=== PATIENT | female | born 1950 | race Hispanic/Latino ===

== ENCOUNTER 2019-08-27 11:32 | Emergency (ER) | payer BC ==
[2019-08-27] MEDS ORDERED: ONDANSETRON 4 MG/2 ML VIAL ONE (11:55)
[2019-08-27] MEDS ORDERED: MORPHINE 4 MG/ML SYR ONE (11:55)
[2019-08-27 12:14] LABS: Protime INR 0.92
[2019-08-27 12:15] LABS: Basophils % 1.4 % (0-1.3); Hematocrit 38.3 % (36.0-45.0); Lymphocytes % 31.8 % (15.3-44.8); MPV 9.3 fL (7.6-11.3); RBC Red Blood Cell Count 4.32 M/uL (3.86-4.86)
--- NOTE | 2019-08-27 12:15 | RAD REPORT ---
EXAM DESCRIPTION: Ondina Single View08/27/2019 12:05 pm CLINICAL HISTORY: Chest pain COMPARISON: 2016 FINDINGS: The lungs appear clear of acute infiltrate. The heart is normal size IMPRESSION: No acute abnormalities displayed
[2019-08-27 12:22] LABS: ALT/SGPT 13 U/L (12-78); AST/SGOT 9 U/L (15-37); Albumin 3.1 g/dL (3.4-5.0); Alkaline Phosphatase 101 U/L (45-117); BUN Blood Urea Nitrogen 11 mg/dL (7-18); Bicarbonate 30 mmol/L (21-32); Bilirubin Direct 0.1 mg/dL (0-0.2); Bilirubin Total 0.2 mg/dL (0.2-1.0); Glucose Level 305 mg/dL (74-106); NT PRO-BNP 90 pg/mL (<125); Potassium 4.1 mmol/L (3.5-5.1); Protein, Total 7.3 g/dL (6.4-8.2); Sodium Level 140 mmol/L (136-145); Troponin (Emerg Dept Use Only) < 0.02 ng/mL (0.0-0.045)
--- NOTE | 2019-08-27 13:12 | EDPHYS ---
Physician Documentation [facility] Name: Aliza Claudio Age: 68 yrs Sex: Female : 1950 Arrival Date: 08/27/2019 Time: 11:33 Bed 5 Private MD: ED Physician Claudia Arias HPI: 08/26 13:09 This 68 yrs old Female presents to ER via EMS with complaints of Arm Pain. ma2 13:09 The patient or guardian complains of pain. Onset: The symptoms/episode began/occurred ma2 gradually, 5 day(s) ago. Associated signs and symptoms: Pertinent negatives: erythema, nausea, pain, tingling. Severity of symptoms: At their worst the symptoms were moderate, in the emergency department the symptoms are unchanged. left elbow and forearm pain and wrist pain that is constant x 4 days worse with movement no chest pain or upper arm pain. . Historical: - Allergies: 11:38 Aspirin; em 11:38 Iodine; em - PMHx: 11:38 Diabetes - IDDM; Hypertension; em 11:44 melanoma; em - PSHx: 11:38 Bowel resection; Cholecystectomy; ; Hysterectomy; em - Immunization history:: Adult Immunizations not up to date. - Social history:: Smoking status: Patient denies any tobacco usage or history of. Patient/guardian denies using alcohol, street drugs, The patient lives with family. - Family history:: not pertinent. ROS: 13:09 Constitutional: Negative for fever, chills, and weight loss. ma2 13:09 All other systems are negative. Exam: 13:09 Constitutional: This is a well developed, well nourished patient who is awake, alert, ma2 and in no acute distress. Chest/axilla: Normal chest wall appearance and motion. Nontender with no deformity. No lesions are appreciated. Cardiovascular: Regular rate and rhythm with a normal S1 and S2. No gallops, murmurs, or rubs. Normal PMI, no JVD. No pulse deficits. Respiratory: Lungs have equal breath sounds bilaterally, clear to auscultation and percussion. No rales, rhonchi or wheezes noted. No increased work of breathing, no retractions or nasal flaring. Abdomen/GI: Soft, non-tender, with normal bowel sounds. No distension or tympany. No guarding or rebound. No evidence of tenderness throughout. MS/ Extremity: Pulses equal, no cyanosis. Neurovascular intact. Full, normal range of motion. Neuro: Awake and alert, GCS 15, oriented to person, place, time, and situation. Cranial nerves II-XII grossly intact. Motor strength 5/5 in all extremities. Sensory grossly intact. Cerebellar exam normal. Normal gait. Vital Signs: 11:35 BP 152 / 56; Pulse 66; Resp 18; Temp 98.4(O); Pulse Ox 97% on R/A; Weight 99.79 kg; em Height 5 ft. 4 in. (162.56 cm); Pain 9/10; 12:22 BP 152 / 56; Pulse 58; Resp 12; Pulse Ox 95% ; sv 14:09 BP 116 / 53; Pulse 70; Resp 18; Pulse Ox 99% on R/A; Pain 7/10; em 11:35 Body Mass Index 37.76 (99.79 kg, 162.56 cm) em MDM: 12:54 Patient medically screened. ak2 13:09 Differential diagnosis: contusion, abrasion, tendonitis. Data reviewed: vital signs, ma2 nurses notes. Counseling: I had a detailed discussion with the patient and/or guardian regarding: the historical points, exam findings, and any diagnostic results supporting the discharge/admit diagnosis, the presence of at least one elevated blood pressure reading (>120/80) during this emergency department visit, the need for outpatient follow up. ED course: discussed with dr. núñez. 08/26 11:40 Order name: Basic Metabolic Panel; Complete Time: 12:52 [facility] 08/26 11:40 Order name: CBC with Diff; Complete Time: 12:52 ak08/26 11:40 Order name: LFT's; Complete Time: 12:52 [facility] 08/26 11:40 Order name: Magnesium; Complete Time: 12:52 [facility] 08/26 11:40 Order name: NT PRO-BNP; Complete Time: 12:52 ak08/26 11:40 Order name: PT-INR; Complete Time: 12:52 ak08/26 11:40 Order name: Troponin (emerg Dept Use Only); Complete Time: 12:52 [facility] 08/26 11:40 Order name: XRAY Chest (1 view); Complete Time: 12:52 [facility] 08/26 11:40 Order name: EKG; Complete Time: 11:41 ak08/26 11:40 Order name: Cardiac monitoring; Complete Time: 11:41 [facility] 08/26 13:09 Order name: Uric Acid [facility] 08/26 11:40 Order name: EKG - Nurse/Tech; Complete Time: 12:00 [facility] 08/26 11:40 Order name: IV Saline Lock; Complete Time: 12:00 [facility] 08/26 11:40 Order name: Labs collected and sent; Complete Time: 12:00 [facility] 08/26 11:40 Order name: O2 Per Protocol; Complete Time: 11:41 [facility] 08/26 11:40 Order name: O2 Sat Monitoring; Complete Time: 11:41 [facility] 08/26 11:48 Order name: Sling; Complete Time: 14:07 ma2 Administered Medications: 11:56 Drug: Zofran (Ondansetron) 4 mg Route: IVP; Site: right antecubital; em 12:20 Follow up: Response: No adverse reaction em 11:58 Drug: morphine 2 mg Route: IVP; Site: right antecubital; em 12:20 Follow up: Response: No adverse reaction; Marked relief of symptoms; Pain is decreased em 12:01 Not Given (Other Intervention Used): morphine 4 mg IVP once; RASS on ADMIN: Combtv4, em Very Agttd3, Agttd2, Rstlss1, AlertClm0, Drwsy-1, Lt Sdtn-2, Mod Sdtn-3, Dp Sdtn-4, UnArsble-5 Disposition: 08/27/19 13:12 Discharged to Home. Impression: Muscle spasm, Pain in left elbow. - Condition is Stable. - Discharge Instructions: Muscle Pain, Adult. - Prescriptions for Cyclobenzaprine 10 mg Oral Tablet - take 1 tablet by ORAL route every 8 hours As needed; 30 tablet. Diclofenac Sodium 75 mg Oral Tablet Sustained Release - take 1 tablet by ORAL route 2 times per day; 30 tablet. - Work release form, Medication Reconciliation Form, Thank You Letter, Antibiotic Education, Prescription Opioid Use form. - Follow up: Private Physician; When: Tomorrow; Reason: Continuance of care. Signatures: Dispatcher [employer] Domingo Metz, RN Claudia Blanchard MD MD ma2 Corrections: (The following items were deleted from the chart) 14:38 13:12 08/27/2019 13:12 Discharged to Home. Impression: Muscle spasm; Pain in left em elbow. Condition is Stable. Prescriptions for Cyclobenzaprine 10 mg Oral Tablet - take 1 tablet by ORAL route every 8 hours As needed; 30 tablet, Diclofenac Sodium 75 mg Oral Tablet Sustained Release - take 1 tablet by ORAL route 2 times per day; 30 tablet. and Forms are Medication Reconciliation Form, Thank You Letter, Antibiotic Education, Prescription Opioid Use. Follow up: Private Physician; When: Tomorrow; Reason: Continuance of care. ma2
--- NOTE | 2019-08-27 13:12 | ER ---
Nurse's Notes [facility] Name: Aliza Claudio Age: 68 yrs Sex: Female : 1950 Arrival Date: 08/27/2019 Time: 11:33 Bed 5 Private MD: Diagnosis: Muscle spasm;Pain in left elbow Presentation: 08/26 11:35 Chief complaint: EMS states: called out for left arm pain since Wednesday, denies trauma em to arm, swelling noted to left hand, limited ROM on left elbow, denies chest pain, fever, cough or SOB. Coronavirus screen: Patient denies a cough. Patient denies shortness of breath or difficulty breathing. Patient denies measured and/or subjective temperature greater than 100.4F prior to today's visit. Patient denies travel on a cruise ship or to a country the [facility] currently lists as an affected area. Patient denies contact with known and/or suspected case of COVID-19. Ebola Screen: Patient negative for fever greater than or equal to 101.5 degrees Fahrenheit, and additional compatible Ebola Virus Disease symptoms Patient denies exposure to infectious person. Patient denies travel to an Ebola-affected area in the 21 days before illness onset. No symptoms or risks identified at this time. Initial Sepsis Screen: Does the patient meet any 2 criteria? No. Patient's initial sepsis screen is negative. Does the patient have a suspected source of infection? No. Patient's initial sepsis screen is negative. Risk Assessment: Do you want to hurt yourself or someone else? Patient reports no desire to harm self or others. Onset of symptoms was August 25, 2019. 11:35 Method Of Arrival: EMS: [facility] em 11:35 Acuity: AZEEM 3 em Historical: - Allergies: 11:38 Aspirin; em 11:38 Iodine; em - PMHx: 11:38 Diabetes - IDDM; Hypertension; em 11:44 melanoma; em - PSHx: 11:38 Bowel resection; Cholecystectomy; ; Hysterectomy; em - Immunization history:: Adult Immunizations not up to date. - Social history:: Smoking status: Patient denies any tobacco usage or history of. Patient/guardian denies using alcohol, street drugs, The patient lives with family. - Family history:: not pertinent. Screenin:38 Abuse screen: Denies threats or abuse. Nutritional screening: No deficits noted. em Tuberculosis screening: No symptoms or risk factors identified. Fall Risk None identified. Assessment: 11:38 General: Appears uncomfortable, Behavior is calm, crying, Denies fever. Pain: Complains em of pain in left elbow, left wrist and palmar aspect of left forearm Pain currently is 9 out of 10 on a pain scale. Pain began 2-3 days ago. Neuro: Level of Consciousness is awake, alert, obeys commands, Oriented to person, place, time, situation, Appropriate for age Speech is normal, Intact. Cardiovascular: Denies chest pain, palpitations, shortness of breath, vomiting, Heart tones S1 S2 present Capillary refill < 3 seconds Patient's skin is warm and dry. Rhythm is sinus rhythm. Respiratory: Airway is patent Respiratory effort is even, unlabored, Respiratory pattern is regular, symmetrical. GI: Abdomen is round non-distended, Patient currently denies nausea, vomiting. Derm: Skin is intact, is thin, Skin is pink, warm \T\ dry. Musculoskeletal: Capillary refill < 3 seconds, Range of motion: limited in left elbow Swelling present in left hand. 13:33 Reassessment: Patient appears in no apparent distress at this time. Patient and/or em family updated on plan of care and expected duration. Pain level reassessed. Patient is alert, oriented x 3, equal unlabored respirations, skin warm/dry/pink. has been discharged, waiting for daughter to supervisor opening and picking pt. Vital Signs: 11:35 BP 152 / 56; Pulse 66; Resp 18; Temp 98.4(O); Pulse Ox 97% on R/A; Weight 99.79 kg; em Height 5 ft. 4 in. (162.56 cm); Pain 9/10; 12:22 BP 152 / 56; Pulse 58; Resp 12; Pulse Ox 95% ; sv 14:09 BP 116 / 53; Pulse 70; Resp 18; Pulse Ox 99% on R/A; Pain 7/10; em 11:35 Body Mass Index 37.76 (99.79 kg, 162.56 cm) em ED Course: 11:33 Patient arrived in ED. am2 11:35 Domingo Pulliam, RN is Primary Nurse. em 11:38 Triage completed. em 11:38 Arm band placed on. em 11:38 Patient has correct armband on for positive identification. Bed in low position. Call em light in reach. Side rails up X2. site monitor on. Pulse ox on. NIBP on. 11:39 Claudia Arias MD is Attending Physician. ma2 12:05 XRAY Chest (1 view) In Process Unspecified. EDMS 12:50 Initial lab(s) drawn, by ED staff, sent to lab. Inserted saline lock: 20 gauge in right em antecubital area, using aseptic technique. Blood collected. 14:08 No provider procedures requiring assistance completed. IV discontinued, intact, em bleeding controlled, No redness/swelling at site. Pressure dressing applied. Administered Medications: 11:56 Drug: Zofran (Ondansetron) 4 mg Route: IVP; Site: right antecubital; em 12:20 Follow up: Response: No adverse reaction em 11:58 Drug: morphine 2 mg Route: IVP; Site: right antecubital; em 12:20 Follow up: Response: No adverse reaction; Marked relief of symptoms; Pain is decreased em 12:01 Not Given (Other Intervention Used): morphine 4 mg IVP once; RASS on ADMIN: Combtv4, em Very Agttd3, Agttd2, Rstlss1, AlertClm0, Drwsy-1, Lt Sdtn-2, Mod Sdtn-3, Dp Sdtn-4, UnArsble-5 Outcome: 13:12 Discharge ordered by . ma2 14:37 Discharged to home via wheelchair. em 14:37 Condition: good 14:37 Discharge instructions given to patient, Instructed on discharge instructions, follow up and referral plans. medication usage, Demonstrated understanding of instructions, follow-up care, medications, Prescriptions given X 2. 14:38 Patient left the ED. em Signatures: Dispatcher [employer] Maria Elena Patel RN RN sv Munoz, Edgar, RN RN em Florinda Wayne am2 Claudia Arias MD MD ma2
[2019-08-27 14:45] VITALS: TEMP 98.4
[2019-08-27 14:47] VITALS: BP 116/53; O2SAT 99
--- NOTE | 2019-08-28 16:18 | EKG ---
Test Date: 2019-08-27 Test Time: 11:50:35 Generating Plant Superintendent: JOS MEASUREMENT RESULTS: Intervals: Rate: 65 AK: 176 QRSD: 142 QT: 454 QTc: 472 [place]: P: 67 AK: 176 QRS: -74 T: 20 INTERPRETIVE STATEMENTS: Normal sinus rhythm Right bundle branch block Left anterior fascicular block Bifascicular block Possible Lateral infarct, age undetermined Abnormal ECG Compared to ECG 07/24/2016 17:40:42 Left anterior fascicular block now present Bifascicular block now present Myocardial infarct finding now present Left-axis deviation no longer present Electronically Signed On 08-28-19 16:16:25 CDT by Malachi Kidd
== END 2019-08-27 14:38 | disposition home or self-care (01) ==
LOC: ER 11:32
DX: M62.838 Other muscle spasm (principal); M25.522 Pain in left elbow; Z85.820 Personal history of malignant melanoma of skin
CPT/HCPCS: 93005; 85025; 80048; 36415; 83735; 85610; 80076; 84550; 84484; 83880; 71045; 96375; 96374; 99284; J2405

== ENCOUNTER 2019-08-27 18:45 | Observation (INO) | payer BC, OTHER ==
[2019-08-27] MEDS ORDERED: D50W 25 GM/50 ML SYRINGE/VIAL IV PRN (19:36)
[2019-08-27] MEDS ORDERED: GLUCAGON 1 MG/VIAL IM PRN (19:36)
[2019-08-27] MEDS ORDERED: ONDANSETRON 4 MG/2 ML VIAL IV PRN (19:36)
[2019-08-27] MEDS: HYDROMORPHONE HCL 1 MG/ML INJ IV PRN ×2 (20:06→22:38)
[2019-08-27] MEDS: NACHLORIDE 0.45% 1,000 ML IV SCH (20:07)
[2019-08-27 20:49] LABS: C-Reactive Protein 7.66 mg/L (<3.00)
[2019-08-27] MEDS ORDERED: VANCOMYCIN 1 GM/VIAL ONE (21:47)
[2019-08-27] MEDS ORDERED: NA CHLORIDE 0.9% 500 ML ONE (21:50)
[2019-08-27] MEDS: VANCOMYCIN 2 GM in NA CHLORIDE 0.9% 500 ML IVPB SCH (21:58)
[2019-08-27] MEDS: INSULIN -REGULAR HUMAN 50 UNIT/0.5 ML ML SQ SCH (21:58)
[2019-08-27] MEDS ORDERED: DIPHENHYDRAMINE 25 MG TAB/CAP PO ONE (22:23)
[2019-08-27] MEDS ORDERED: carvediloL 25 MG TAB PO ONE (22:23)
[2019-08-27 23:13] VITALS: BMI 38.9
[2019-08-28 01:18] LABS: Urine Appearance CLEAR; Urine Bilirubin NEGATIVE (NEG); Urine Blood NEGATIVE (NEG); Urine Color YELLOW; Urine Glucose 3+ (NEG); Urine Microscopic Reflex NO UMIC; Urine Protein NEGATIVE (NEG); Urine Specific Gravity 1.025 (1.005-1.030); Urine Urobilinogen 0.2 mg/dL (0.2-1.0)
[2019-08-28 06:35] LABS: Potassium 4.3 mmol/L (3.5-5.1)
[2019-08-28] MEDS ORDERED: PNEUMOCOCCAL VACCINE 0.5 ML IMVAC ONE (08:00)
[2019-08-28 08:31] LABS: HDL Cholesterol 88 mg/dL (40-60); LDL, Direct 97 mg/dL (100-129)
[2019-08-28] MEDS: INSULIN -REGULAR HUMAN 50 UNIT/0.5 ML ML SQ SCH ×4 (08:35→21:00)
[2019-08-28] MEDS: GABAPENTIN 300 MG CAP PO SCH ×3 (08:36→21:49)
[2019-08-28] MEDS: PIOGLITAZONE 15 MG TAB PO SCH (08:36)
[2019-08-28] MEDS: carvediloL 25 MG TAB PO SCH ×2 (08:36→21:49)
[2019-08-28] MEDS: INSULIN LISPRO 100 UNIT/1 ML SQ SCH ×3 (08:37→21:00)
[2019-08-28] MEDS: INSULIN DEGLUDEC 60 UNIT SQ SCH ×2 (08:38→21:00)
[2019-08-28 08:55] VITALS: O2SAT 97
[2019-08-28] MEDS: TRAMADOL HCL 50 MG TAB PO PRN (11:42)
[2019-08-28] MEDS ORDERED: LIDOCAINE 5% OINT 30 GM TUBE TOP PRN (13:39)
--- NOTE | 2019-08-28 16:18 | EKG ---
Test Date: 2019-08-27 Test Time: 20:38:09 Licensed Reactor Operator: RT MEASUREMENT RESULTS: Intervals: Rate: 73 NJ: 174 QRSD: 148 QT: 438 QTc: 482 [place]: P: 58 [place]: 174 QRS: -60 T: 16 INTERPRETIVE STATEMENTS: Normal sinus rhythm Right bundle branch block Left anterior fascicular block Bifascicular block Abnormal ECG Compared to ECG 08/27/2019 11:50:35 Myocardial infarct finding no longer present Bifascicular block still present Electronically Signed On 08-28-19 16:16:17 CDT by Malachi Kdid
[2019-08-28] MEDS: VANCOMYCIN 2 GM in NA CHLORIDE 0.9% 500 ML IVPB SCH (17:00)
--- NOTE | 2019-08-28 17:00 | P.HP ---
Certification for Inpatient Patient admitted to: Observation With expected LOS: <2 Midnights Practitioner: I am a practitioner with admitting privileges, knowledge of patient current condition, hospital course, and medical plan of care. Services: Services provided to patient in accordance with Admission requirements found in Title 42 Section 412.3 of the Code of Federal Regulations Patient History Date of Service: 08/28/19 Reason for admission: SEVERE L ELBOW PAIN. History of Present Illness: MR ARANA CAME TO ER YESTERDAY FOR ELBOW AND FOREARM PAIN. ER DOCTOR CALLED ME. THEY SENT HER HOME ON PAIN MEDS. I HAD ANOTHER CALL AND TELEVIDEO VISIT WITH HER YESTERDAY ABOUT 6;30 PM SHE WAS IN SEVERE PAIN. I ADMITTED HER FOR INTRACTABLE PAIN AND POSSIBLE CELLULITIS. I SAW HER THIS AM. SHE STILL IS IN SIGNIFICANT AMT OF PAIN. Allergies Aspirin Allergy (Uncoded 08/27/19 20:01) stomach pain Home Medications: Carvedilol [Coreg] 25 mg PO BID 08/27/19 Gabapentin 600 mg PO TID 08/27/19 Insulin Aspart [Novolog Flexpen] 30 unit SQ TID 08/27/19 Insulin Degludec [Tresiba Flextouch U-200] 60 unit SQ BID 08/27/19 Pioglitazone HCl 30 mg PO DAILY 08/27/19 - Past Medical/Surgical History Has patient received pneumonia vaccine in the past: No Diabetic: Yes -: IDDM -: Melanoma -: HTN -: cataract -: catract surgery -: left foot surgery -: hysterectomy -: gall bladder removed -: - Social History Smoking Status: Never smoker Alcohol use: No CD- Drugs: No Caffeine use: Yes Place of Residence: Home Review of Systems 10-point ROS is otherwise unremarkable General: Weakness Physical Examination - Vital Signs Temperature: 97.4 F Blood Pressure: 133/57 Pulse: 63 Respirations: 20 Pulse Ox (%): 97 - Physical Exam General: Alert, Oriented x3, Severe distress HEENT: Atraumatic, PERRLA, Mucous membr. moist/pink, EOMI, Sclerae nonicteric Neck: Supple, 2+ carotid pulse no bruit, No LAD, Without JVD or thyroid abnormality Respiratory: Clear to auscultation bilaterally, Normal air movement Cardiovascular: Regular rate/rhythm, Normal S1 S2 Gastrointestinal: Normal bowel sounds, No tenderness Musculoskeletal: No tenderness, Other (TENDER L SIDE ELBOW PAIN. SWELLING, INFLAMMATION AND PAIN GOES DOWN TO FOREARM ALSO. THERE IS NO BURSITIS BUT MORE TENDONITIS.) Integumentary: No rashes Neurological: Normal gait, Normal speech, Normal strength at 5/5 x4 extr, Normal tone, Normal affect Lymphatics: No axilla or inguinal lymphadenopathy - Studies Laboratory Data (last 24 hrs) 08/28/19 07:01: Triglycerides 72, Cholesterol 191, LDL Cholesterol Direct 97 L, HDL Cholesterol 88 H, Cholesterol/HDL Ratio 2.17 08/28/19 05:30: Sodium 137, Potassium 4.3, BUN 15, Creatinine 0.71, Glucose 251 H 08/27/19 20:03: Amylase 22 L Assessment and Plan - Problems (Diagnosis) (1) Tendonitis Current Visit: Yes Status: Acute Plan: LIDOCAIN TOPICAL. VANCOMYCIN IV STARTED IT WAS NOT CLEAR IF SHE HAD CELLULITIS OR NOT. SHE HAS NORMAL PROCALCITONIN. CRP IS HIGH. I CONSULTED ORTHO BUT THERE IS NO ORTHO STATUARY PAINTER TODAY. I ORDERED MRI BUT MRI MACHINE IS BROKE. SHE IS IN SEVERE PAIN AND CAN'T LIFT HER ARM TO DO ANYTHING. (2) Diabetes Current Visit: Yes Status: Acute Plan: SHE SAYS SHE DOES NOT EAT MUCH BUT SHE IS NOT LOSING WEIGHT AND NOT ABLE TO CONTROL DM. SHE CAN'T TOLERATE ANY NEWER MEDS LIKE TRULICITY OR SYNJARDI, TRIED FROM OFFICE. Qualifiers: Diabetes mellitus type: type 2 - Advance Directives Does patient have a Living Will: No Does patient have a Durable POA for Healthcare: No
[2019-08-29 04:47] LABS: Absolute Lymphocytes (CBC) 2.2 K/uL (0.7-4.9); Basophils % 1.1 % (0-1.3); Lymphocytes % 31.8 % (15.3-44.8); MPV 8.8 fL (7.6-11.3); RBC Red Blood Cell Count 4.25 M/uL (3.86-4.86)
[2019-08-29 04:59] LABS: BUN Blood Urea Nitrogen 10 mg/dL (7-18); Bicarbonate 31 mmol/L (21-32); Glucose Level 127 mg/dL (74-106); Potassium 4.1 mmol/L (3.5-5.1); Sodium Level 143 mmol/L (136-145)
[2019-08-29] MEDS: NACHLORIDE 0.45% 1,000 ML IV SCH (05:20)
[2019-08-29] MEDS: INSULIN -REGULAR HUMAN 50 UNIT/0.5 ML ML SQ SCH ×2 (07:30→11:10)
[2019-08-29] MEDS: PIOGLITAZONE 15 MG TAB PO SCH (07:53)
[2019-08-29] MEDS: carvediloL 25 MG TAB PO SCH (07:54)
[2019-08-29] MEDS: INSULIN LISPRO 100 UNIT/1 ML SQ SCH ×2 (07:54→11:11)
[2019-08-29] MEDS: INSULIN DEGLUDEC 60 UNIT SQ SCH (07:54)
[2019-08-29] MEDS: GABAPENTIN 300 MG CAP PO SCH ×2 (07:55→13:00)
[2019-08-29] MEDS: VANCOMYCIN 2 GM in NA CHLORIDE 0.9% 500 ML IVPB SCH (09:00)
[2019-08-29] MEDS: TRAMADOL HCL 50 MG TAB PO PRN (09:37)
[2019-08-29 13:17] VITALS: BP 129/58; TEMP 97.3
[2019-08-29 13:44] LABS: Platelet Estimate ADEQ
--- NOTE | 2019-08-29 18:08 | P.DS ---
Admission Date: 08/27/19 Discharge Date: 08/29/19 Disposition: ROUTINE DISCHARGE Discharge Condition: FAIR Reason for Admission: SEVERE L ELBOW PAIN. - Problems (1) Tendonitis Status: Acute (2) Diabetes Status: Acute Qualifiers: Diabetes mellitus type: type 2 Brief History of Present Illness: MR ARANA CAME TO ER YESTERDAY FOR ELBOW AND FOREARM PAIN. ER DOCTOR CALLED ME. THEY SENT HER HOME ON PAIN MEDS. I HAD ANOTHER CALL AND TELEVIDEO VISIT WITH HER YESTERDAY ABOUT 6;30 PM SHE WAS IN SEVERE PAIN. I ADMITTED HER FOR INTRACTABLE PAIN AND POSSIBLE CELLULITIS. I SAW HER THIS AM. SHE STILL IS IN SIGNIFICANT AMT OF PAIN. Hospital Course: MS. NEWBERRY CAME WITH SEVERE PAIN L LATERAL ELBOW WITH SWELLING THAT WAS FOCAL. SHE HAD NO FLUCTUATION BUT HAD MILD INFLAMMATION. SHE COULD NOT MOVE THE ARM AT ALL. I GAVE HER VANCOMYCIN WITH SUSPICION OF CELLULTIS AND SHE CLINICALLY IMPROVED BY 90%. NOW SHE IS SITTING AND EATING BF WITH NO PROBLEMS. SHE REALIZES THAT SHE IS NOT EATING WELL. HER GLUCOSE IS GOOD HERE. SHE HAS BEEN TOLD TO LOSE WEIGHT MANY TIMES IN PAST TO HELP HER REDUCE GLUCOSE. SHE SAYS SHE WILL DO SO AND AT FU I WILL GIVE HER PALEO RECIPES. Vital Signs/Physical Exam: Temp Pulse Resp BP Pulse Ox 97.3 F 61 18 129/58 L 94 08/29/19 12:00 08/29/19 12:00 08/29/19 12:00 08/29/19 12:00 08/29/19 12:00 Laboratory Data at Discharge: WBC 7.0 K/uL (4.3-10.9) 08/29/19 04:30 Hgb 12.4 g/dL (12.0-15.0) 08/29/19 04:30 Hct 38.0 % (36.0-45.0) 08/29/19 04:30 Plt Count 174 K/uL (152-406) 08/29/19 13:06 Sodium 143 mmol/L (136-145) 08/29/19 04:30 Potassium 4.1 mmol/L (3.5-5.1) 08/29/19 04:30 BUN 10 mg/dL (7-18) 08/29/19 04:30 Creatinine 0.54 mg/dL (0.55-1.3) L 08/29/19 04:30 Glucose 127 mg/dL (74-106) H 08/29/19 04:30 Triglycerides 72 mg/dL (<150) 08/28/19 07:01 Cholesterol 191 mg/dL (<200) 08/28/19 07:01 LDL Cholesterol Direct 97 mg/dL (100-129) L 08/28/19 07:01 HDL Cholesterol 88 mg/dL (40-60) H 08/28/19 07:01 Cholesterol/HDL Ratio 2.17 08/28/19 07:01 Amylase 22 U/L (25-115) L 08/27/19 20:03 Home Medications: Carvedilol [Coreg] 25 mg PO BID 08/27/19 Gabapentin 600 mg PO TID 08/27/19 Insulin Aspart [Novolog Flexpen] 30 unit SQ TID 08/27/19 Insulin Degludec [Tresiba Flextouch U-200] 60 unit SQ BID 08/27/19 Insulin -Regular Human [Novolin -R*] See Protocol SQ ACHS ml 08/29/19 Smz./Tmp. [Bactrim Ds 800 MG/160 MG] 1 tab PO BID #20 tab 08/29/19 New Medications: Smz./Tmp. [Bactrim Ds 800 MG/160 MG] 1 tab PO BID #20 tab Followup: Lj Aguilera MD [ACTIVE - CAN ADMIT] -
[2019-08-30] MEDS ORDERED: ENOXAPARIN 40 MG/0.4 ML SQ SCH (09:00)
== END 2019-08-29 13:35 | disposition home or self-care (01) ==
LOC: 2ND 18:45
PROVIDERS: ADMIT Internal Medicine; ATTEND Internal Medicine
DX: M77.9 Enthesopathy, unspecified (principal); E11.9 Type 2 diabetes mellitus without complications; I10 Essential (primary) hypertension; Z79.4 Long term (current) use of insulin; Z23 Encounter for immunization; Z88.6 Allergy status to analgesic agent; Z85.820 Personal history of malignant melanoma of skin
CPT/HCPCS: 93005; 85025; 80048 ×2; 36415 ×2; 82150; 83721; 82550; 85049; 80061; 82947 ×8; 83605; 85652; 84443; 81003; 83036; 82607; 84145; 86140; 90471; 90670; J1170 ×2; J7040 ×2; J2405; G0379; G0378 ×4; J1815

== ENCOUNTER 2020-09-16 13:30 | Observation (INO) | payer BC, OTHER ==
--- OUTSIDE RECORDS SUMMARY | 2020-09-16 13:34 | XMS REPORT | Continuity of Care Document ---
:1950 Author Organization [facility] t Address [address] [place] [address] Dr. [address] [place] [address] Care Team Providers Name Role Phone Claudy CORONA Primary Care Physician Unavailable Elena BOJORQUEZ Attending Clinician Unavailable Najma GARCIA Attending Clinician Chip RN, B Attending Clinician Unavailable Claudy Corona MD Attending Clinician Claudy CORONA Attending Clinician Unavailable Juan CLARK Attending Clinician Unavailable Juan Clark MD Attending Clinician Lavonne Mcneill Attending Clinician LAVONNE GARSIA Attending Clinician Unavailable Bea ANDERSON Attending Clinician Unavailable Bea Fernandez Attending Clinician Que Mcdonald Attending Clinician Elena BOJORQUEZ Admitting Clinician Unavailable Payers Payer Name Policy Type Policy Number Effective Date Expiration Date S ource MEDICARE PART A [id number] 2017 AND B 00:00:00 [place] [id number] 2019 00:00:00 Problems Condition Condition Condition Status Onset Resolution Last Treating Co mments Source Name Details Category Date Date Treatment Clinician Date Personal Personal Disease Active Overview: MD history of history of 2-05 Added An derso colonic colonic 00:00: automatic n polyp polyp 00 ally from request for surgery [id number] Personal Personal Disease Active Last MD history of history of 8-26 Assessmen Anderso malignant malignant 00:00: t & Plan: n melanoma melanoma 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 The CT chest abdomen and pelvis is negative for any metastasi s. She will continue observati on without treatment and return to clinic in 4 months with repeat imaging. The restaging scans include CT chest abdomen and pelvis. She will continue her self skin and janessa examinati on and report if any changes occur. Neoplasm Neoplasm Disease Active MD of of 3-25 Anderso uncertain uncertain 00:00: n behavior behavior 00 of liver of liver Cough Cough Disease Active Angel GARCIA 9-17 Assessmen Anderso 00:00: t & Plan: n 00 Encourage d use of a daily antihista mine and mucinex as needed. Lungs clear to auscultat ion. Monitor. Acute low Acute low Disease Active Angel GARCIA back pain back pain 7-10 Assessmen A nderso 00:00: t & Plan: n 00 She is having left flank pain radiating to the abdominal area. She had an MRI spine with the family physician which was negative. Mostly the pain is on the days she works. Advised to try ibuprofen as needed or icy cold patch. Other Other Disease Active abnormalit abnormalit 7-10 An derso ies of ies of 00:00: n gait and gait and 00 mobility mobility Scar Scar Disease Active conditions conditions 7-10 An derso and and 00:00: n fibrosis fibrosis 00 of skin of skin Stiffness Stiffness Disease Active MD of left of left 7-10 Anderso ankle ankle 00:00: n 00 Lymphedema Lymphedema Disease Active Last M D of lower of lower 7-10 Assessmen And erso extremity extremity 00:00: t & Plan: n 00 This is stable and unchanged . Lymphedema Lymphedema Disease Active M D , not , not 6-18 Anderso elsewhere elsewhere 00:00: n classified classified 00 Foot pain Foot pain Disease Active 3-31 Anderso 00:00: n 00 Metastatic Metastatic Disease Active Last M D malignant malignant 3-12 Assessmen A nderso melanoma melanoma 00:00: t & Plan: n 00 At this point there is not evidence of melanoma recurrenc e and we will bring her back in 6 months with repeat imaging. She will be seen by Dr. Edna Clark for a full skin exam. 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-26 Anderso unspecifie unspecifie 00:00: n d d 00 malignant malignant neoplasm neoplasm of of inguinal inguinal and lower and lower limb lymph limb lymph nodes nodes Encounter Encounter Disease Active for for 3 Anderso follow-up follow-up 00:00: n examinatio examinatio 00 n after n after completed completed treatment treatment for for malignant malignant neoplasm neoplasm Other Other Disease Active Overview: cirrhosis cirrhosis 2-15 Added Ruben rso of liver of liver 00:00: automatic n 00 ally from request for surgery [id number] Acral Acral Disease Active Overview: lentiginou lentiginou 06-14 Added An derso s s 00:00: automatic n malignant malignant 00 ally from melanoma melanoma request of skin of skin for surgery [id number] 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 00 Cirrhosis Cirrhosis Disease Active Overview: - - 1 bx proven Anderso non-alcoho non-alcoho 00:00: n lic lic 00 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 steatohepa 00:00: n titis titis 00 (QUINTANILLA) (QUINTANILLA) Diastolic Diastolic Disease Active 2013-[address] [facility] dysfunctio dysfunctio 06-05 [facility] - n, left n, left 00:00: Medical ventricle: ventricle: 00 Ce nter MIld LVH MIld LVH and and elevated elevated LAP LAP S/P right S/P right Disease Active 2013-[address] [facility] hemicolect hemicolect 06-04 [facility] - jose jose 00:00: Medical 00 Center Neuroendoc Neuroendoc Disease Active 2013-[address] rine tumor rine tumor 06-02 [facility] - 00:00: Medical 00 [place] Colon Colon Disease Active 2013-[address] [facility] cancer cancer 06-02 [facility] Center Allergies, Adverse Reactions, Alerts Allergy Allergy Status Severity Reaction(s) Onset Inactive Treating Comm ents Source Name Type Date Date Clinician Salicyla Drug Active Diarrhea, Diarrhea [facility] St cristo Allergy Nausea And 9-12 and pain Nick es - Vomiting 00:00: Medical 00 Center Family History Family Member Diagnosis Comments Start Date Stop Date Source Maternal aunt -Gastrointestinal MD Zapata ndersnay (Esophagus, Liver, Bile Duct, Stomach, Pancreas, Colon, Rectum, Anus Maternal grandmother -Gastrointestinal MD Knowles (Esophagus, Liver, Bile Duct, Stomach, Pancreas, Colon, Rectum, Anus Maternal uncle -Gastrointestinal MD Knowles (Esophagus, Liver, Bile Duct, Stomach, Pancreas, Colon, Rectum, Anus Maternal uncle -Other cancer MD Miranda rsnay Natural mother -Gastrointestinal MD Knowles (Esophagus, Liver, Bile Duct, Stomach, Pancreas, Colon, Rectum, Anus Natural sister Diabetes MD Valerie figueredo Social History Social Habit Start Date Stop Date Quantity Comments Source Sex Assigned At MD Grimes on Tobacco use and 2020-06-24 2020-06-24 Never used MD Grimes on exposure 00:00:00 00:00:00 Alcohol intake 2020-06-24 2020-06-24 Current drinker MD Kay will 00:00:00 00:00:00 of alcohol (finding) Alcohol Comment 2016-12-02 2016-12-02 2-3 drinks per MD Kay will 00:00:00 00:00:00 year Smoking Status Start Date Stop Date Source Never smoker MD Knowles Medications Ordered Filled Start Stop Current Ordering Indication Dosage Frequency Signature Comments Components Source Medication Medication Date Date Medication? Clinician (SIG) Name Name dulaglutide Yes Inject MD (TRULICITY) 2-08 under the And erso 0.75 mg/0.5 16:27: skin once n mL 27 a week. injection acetaminoph 2019- Yes 1{tbl} Take 1 MD en-codeine 8-07 tablet by Ruben bass (TYLENOL 14:57: mouth n #3) 300 37 twice mg-30 mg daily. tablet rosuvastati 2019-0 Yes 1{tbl} Take 1 MD n (CRESTOR) 5-14 tablet by And erso 10 mg 00:00: mouth n tablet 00 daily. carvedilol 2019-0 Yes 1{tbl} Take 1 MD (COREG) 5-14 tablet by Anderso 6.25 mg 00:00: mouth n tablet 00 twice daily. gabapentin 0 Yes 600mg Q.5D Take [address] (NEURONTIN) 3-12 mg by [facility] - 400 MG 11:17: mouth 2 Medical capsule 54 (two) Center times daily . mirabegron 2019-0 2020- No 50mg QD Take [address] [facility] (MYRBETRIQ) 3-12 06-10 tablet (50 L ukes - 50 mg Tb24 00:00: 23:59 mg total) M edical ER tablet 00 :00 by mouth Center daily for 90 days. pioglitazon Yes 1{tbl} Take 1 MD e HCl 1-12 tablet by Anderso (PIOGLITAZO 00:00: mouth n NE ORAL) 00 daily. gabapentin 2019-0 2020- No 1{tbl} Take 1 MD (NEURONTIN) 1-12 08-07 tablet by An derso 600 mg 00:00: 00:00 mouth n tablet 00 :00 daily. BENICAR 20 2018-05 2020- No 1{tbl} Take 1 MD mg tablet 1-11 08-07 tablet by Ruben bass 00:00: 00:00 mouth n 00 :00 daily. insulin Yes Long-term 50U Inject 50 MD degludec 8-16 current use Units And erso (TRESIBA 00:00: of insulin under the n FLEXTOUCH 00 skin U-200) 200 daily. unit/mL (3 mL) inpn insulin Yes Type 2 2U Inject MD aspart 8-16 diabetes 2-25 Units And erso U-100 00:00: mellitus under the n (NovoLOG 00 with skin 3 Flexpen hyperglycem (three) U-100 ia times a Insulin) day with 100 unit/mL meals. insulin pen flash Yes Type 2 1{each} 1 each by glucose 8-16 diabetes miscellane An derso sensor kit 00:00: mellitus ous route n 00 with as hyperglycem directed. ia blood sugar Yes Type 2 1{each} 1 each by diagnostic 8-16 diabetes miscellane Anderso (FREESTYLE 00:00: mellitus ous route n PRECISION 00 with daily. DUANE STRIPS) hyperglycem strp ia pen needle, Yes Type 2 Use one M D diabetic 31 8-16 diabetes pen needle Anderso gauge x 00:00: mellitus with n 5" ndle 00 with insulin hyperglycem pens 4 ia times daily. insulin Yes 30U Q.5D Inject 30 [facility] aspart 8-16 Units [facility] - U-100 00:00: subcutaneo Medica l (NOVOLOG) 00 usly 2 Center 100 unit/mL (two) (3 mL) InPn times daily . insulin Yes 60U Inject 60 [facility] degludec 8-16 Units [facility] - 200 unit/mL 00:00: subcutaneo Medical (3 mL) InPn 00 usly . Center lancets Yes Type 2 1{devic 1 Device M D misc 3-12 diabetes e} by Anderso 00:00: mellitus miscellane n 00 with ous route hyperglycem 3 (three) ia times a day. blood sugar Yes Type 2 1{strip 1 strip by diagnostic 3-12 diabetes } miscellane Anderso (glucose 00:00: mellitus ous route n blood) strp 00 with 3 (three) hyperglycem times a ia day. olmesartan Yes Mixed 20mg Take 1 MD (BENICAR) 1-11 hyperlipide tablet (20 Anderso 20 mg 00:00: shanna mg) by n tablet 00 mouth daily. gabapentin Yes Mixed 600mg Take 1 MD (NEURONTIN) 1-11 hyperlipide tablet Anderso 600 mg 00:00: shanna (600 mg) n tablet 00 by mouth twice daily. olmesartan Yes 1{tbl} Take [address] [facility] (BENICAR) 1-11 tablet by [facility] - 20 MG 00:00: mouth. Medical tablet 00 Center hydrocortis Yes Intertrigo Apply one 2.5% 1-05 topically Cornelio o cream 00:00: to n 00 affected area(s) daily. ketoconazol Yes Intertrigo Apply e (NIZORAL) 1-05 topically And erso 2% cream 00:00: to n 00 affected area(s) daily. pioglitazon 2016-05 Yes Long-term 30mg Take 1 MD e (ACTOS) 0-24 current use tablet (30 Anderso 30 mg 00:00: of insulin mg) by n tablet 00 mouth daily. pioglitazon 2016-05 Yes 30mg Take [address] [facility] e (ACTOS) 0-24 by mouth. [facility] - 30 MG 00:00: Medical tablet 00 Center Immunizations Ordered Immunization Filled Immunization Date Status Commen ts Source Name Name Influenza TIV (IM) 2018-03-02 Completed 00:00:00 Influenza, 2015-03-05 Completed MD Knowles Unspecified 00:00:00 Vital Signs Vital Name Observation Time Observation Value Comments Source WEIGHT 2020-06-24 09:40:38 95.1 kg WEIGHT 2020-06-24 09:40:38 95.1 kg Systolic blood pressure 2020-06-24 15:40:38 156 mm[Hg] MD Knowles Diastolic blood pressure 2020-06-24 15:40:38 79 mm[Hg] MD Knowles Heart rate 2020-06-24 15:40:38 91 /min MD Virgilio moreau Body temperature 2020-06-24 15:40:38 36.78 Julieth MD Benny doherty Respiratory rate 2020-06-24 15:40:38 16 /min MD Benny doherty Body weight 2020-06-24 15:40:38 95.1 kg MD Virgilio moreau BMI 2020-06-24 15:40:38 37.85 kg/m2 MD Virgilio moreau Oxygen saturation in 2020-06-24 15:40:38 95 /min MD Knowles Arterial blood by Pulse oximetry Procedures Procedure Date / Time Performed Performing Clinician [facility] e CT CHEST ABDOMEN PELVIS W 2020-06-24 14:54:42 Usha Corona MD CONTRAST THYROID STIMULATING HORMONE 2020-06-24 12:50:00 Usha oCrona MD COMPREHENSIVE METABOLIC PANEL 2020-06-24 12:50:00 Elana Corona MD COMPLETE BLOOD COUNT W/ 2020-06-24 12:50:00 Usha Corona MD DIFFERENTIAL LACTATE DEHYDROGENASE 2020-06-24 12:50:00 Usha Corona MD MAGNESIUM LEVEL 2020-06-24 12:50:00 Usha Corona MD [facility] FREE THYROXINE 2020-06-24 12:50:00 [facility] 2020-06-24 12:50:00 [facility] BLOOD UREA NITROGEN 2020-06-24 12:50:00 Usha Corona MD [facility] ELECTROLYTE PANEL 2020-06-24 12:50:00 Usha Corona MD And erson SERUM CREATININE 2020-06-24 12:50:00 Usha Corona MD Ruben rson .GLOMERULAR FILTRATION RATE 2020-06-24 12:50:00 Usha Corona MD CALCIUM LEVEL TOTAL 2020-06-24 12:50:00 Usha Corona MD nderson ALBUMIN LEVEL 2020-06-24 12:50:00 Usha Corona MD [facility] ALKALINE PHOSPHATASE 2020-06-24 12:50:00 Usha Corona MD ALANINE AMINOTRANSFERASE 2020-06-24 12:50:00 Usha Corona MD ASPARTATE AMINOTRANSFERASE 2020-06-24 12:50:00 Usha Corona MD TOTAL PROTEIN 2020-06-24 12:50:00 Usha Corona MD Virgilio son FRACTIONATED BILIRUBIN 2020-06-24 12:50:00 Usha Corona Results CBC 2020-06-24 12:50:00 Usha Corona MD Virgilio son MANUAL DIFFERENTIAL 2020-06-24 12:50:00 Usha Corona MD [facility] CT CHEST ABDOMEN PELVIS W 2019-12-22 19:05:13 Angela Anderson MD CONTRAST COMPLETE BLOOD COUNT W/ 2019-12-22 15:49:00 Angela Anderson MD nderson DIFFERENTIAL COMPREHENSIVE METABOLIC PANEL 2019-12-22 15:49:00 Angela Anderson MD LACTATE DEHYDROGENASE 2019-12-22 15:49:00 Angela Anderson MD And erson Results CBC 2019-12-22 15:49:00 Angela Anderson MD MANUAL DIFFERENTIAL 2019-12-22 15:49:00 Angela Anderson MD [facility] GLUCOSE LEVEL 2019-12-22 15:49:00 Angela Anderson MD ELECTROLYTE PANEL 2019-12-22 15:49:00 Angela Anderson MD bea SERUM CREATININE 2019-12-22 15:49:00 Angela Anderson MD .GLOMERULAR FILTRATION RATE 2019-12-22 15:49:00 Angela Anderson MD CALCIUM LEVEL TOTAL 2019-12-22 15:49:00 [facility] ALBUMIN LEVEL 2019-12-22 15:49:00 Angela Anderson MD ALKALINE PHOSPHATASE 2019-12-22 15:49:00 Angela Anderson MD Ruben rson ALANINE AMINOTRANSFERASE 2019-12-22 15:49:00 Angela Anderson MD ASPARTATE AMINOTRANSFERASE 2019-12-22 15:49:00 Angela Anderson TOTAL PROTEIN 2019-12-22 15:49:00 Angela Anderson MD FRACTIONATED BILIRUBIN 2019-12-22 15:49:00 Angela Anderson MD BLOOD UREA NITROGEN 2019-12-22 15:49:00 [facility] Plan of Care Planned Activity Planned Date Details Comments Source Future Scheduled Test 2020-05-17 DEPRESSION SCREENING [facility] - 00:00:00 (12+) [code = Medical Center DEPRESSION SCREENING (12+)] Future Scheduled Test 2020-01-16 [address] VACC[address] [facility] - 00:00:00 (#1) [code = Medical Center INFLUENZA VACCINE (#1)] Future Scheduled Test 2018-11-[address] [facility] - 00:00:00 WELLNESS (YEAR 2 or Medical Center FIRST YEAR if no IPPE) [code = MEDICARE ANNUAL WELLNESS (YEAR 2 or FIRST YEAR if no IPPE)] Future Scheduled Test 2017 PNEUMOCOCCAL 65+ YRS [facility] - 00:00:00 (1 of 1 - Medical Center [id number] PCV13) [code = PNEUMOCOCCAL 65+ YRS (1 of 1 - [id number] PCV13)] Future Scheduled Test 2002 SHINGLES VACCINES ([address] [facility] - 00:00:00 of 2) [code = Medical Center SHINGLES VACCINES (1 of 2)] Future Scheduled Test 1971-12-15 DTAP/TDAP/TD VACCINES [facility] - 00:00:00 (1 - Tdap) [code = Medical C enter DTAP/TDAP/TD VACCINES (1 - Tdap)] Future Scheduled Test 1970 HEPATITIS C SCREENING [facility] - 00:00:00 [code = HEPATITIS C Medical Center SCREENING] Future Scheduled Test 1950 [facility] [place]) [code = 038911595] Future Scheduled Test 1950 [facility]) [code = 055462429] Future Appointment 2022-06-21 Tex Ge MD, MD 00:00:00 [place] [address] Future Appointment 2020-10-23 Tex Ge MD, MD 12:00:00 [place] [address] Future Appointment 2020-10-23 Tex Ge MD, MD 12:00:00 [place] [address] Encounters Start End Encounter Admission Attending Care Care Encounter Source Date/Time Date/Time Type Type Clinicians Facility Department ID 2020-05-21 Outpatient EL BOJORQUEZ, MDA Tomas/Hep/Nu [id number] MD 14:16:22 AHSAN Lindsayerso n 2019-12-04 Outpatient FARHAD BOJORQUEZ, MDA Tomas/Hep/Nu [id number] MD 10:10:12 AHSAN peng Anderso n 2020-06-24 2020-06-24 Outpatient EL JANET, MDA MDA [id number] 06:30:00 23:59:00 USHA Mccartyer so n 2020-06-24 2020-06-24 Outpatient EL RAFATA, MDA MDA [id number] MD 09:26:59 20:55:24 USHA Virgilio so n 2020-06-24 2020-06-24 Outpatient EL ABDELRAHMAN, MDA MDA [id number] MD 09:26:35 10:54:18 EDNA Mccartyers o bea 2020-06-24 2020-06-24 Outpatient EL JANET, MDA MDA [id number] 07:14:16 07:14:16 USHA Mccartyer so n 2020-06-21 2020-06-21 Outpatient FARHAD CLARK, MDA MDA [id number] MD 00:00:00 00:00:00 EDNA Mccartyers o n 2020-04-09 2020-04-09 Outpatient FARHAD BOJORQUEZ, MDA MDA [id number] MD 00:00:00 00:00:00 AHSAN figueredo 2020-04-05 2020-04-05 Outpatient FARHAD GARSIA, MDA MDA [id number] MD 00:00:00 00:00:00 ALLEN figueredo 2020-04-05 2020-04-05 Outpatient FARHAD GARSIA, MDA MDA [id number] MD 00:00:00 00:00:00 ALLEN figueredo 2019-12-26 2019-12-26 Outpatient EL RAFATA, MDA MDA [id number] 07:05:22 07:35:51 USHA Virgilio so n 2019-12-25 2019-12-25 Outpatient EL RAFATA, MDA MDA [id number] MD 00:00:00 00:00:00 USHA Mccartyer so n 2019-12-22 2019-12-22 Outpatient FARHAD ANDERSON, ANGELA MDA MDA [id number] 10:52:34 23:59:00 Corneliomarnie fgiueredo 2019-12-22 2019-12-22 Outpatient ANGELA VELIZ [facility] [id number] 10:40:30 10:51:00 Cornelio figueredo 2019-12-22 2019-12-22 Outpatient FARHAD CLARK MDA [facility] [id number] 09:36:46 10:29:08 EDNA Cornelio figueredo 2019-12-19 2019-12-19 Outpatient FARHAD CORONA [facility] [id number] 00:00:00 00:00:00 USHA figueredo Results Test Description Test Time Test Comments Results Result Sour e Comments CT Chest Abdomen 2020-06-24 Postsurgical MD Kay will Pelvis with 15:10:49 changes. No definite Contrast evidence of metastatic disease in the chest, abdomen and pelvis. Interface, Radiology Results In - 06/24/2020 9:13 AM CSTFULL RESULT:Examination: CT CHEST ABDOMEN PELVIS W CONTRAST, 06/24/2020 8:54 AMClinical History: Secondary and unspecified malignant neoplasm of axilla and upper limb lymph nodesIndication: Restaging - Treatment completion, history of stage III melanomaComparison: CT dated 12/22/2019.Technique : CT of the chest, abdomen, and pelvis was performed with intravenous contrast.Findings: Chest:No definite evidence of significantly enlarged axillary, hilar, or mediastinal lymph nodes by size criteria.Coronary and aortic atherosclerotic calcifications are noted.No definite evidence of sizable suspicious pulmonary nodules. 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 No definite evidence of metastatic disease in the chest, abdomen and pelvis. Fractionated Bilirubin 2020-06-24 13:56:09 Test Item Value Reference Range Interpretation Comme nts Bili Total (test code = 0.3 mg/dL See_Comment Indo cyanine Green (ICG) may cause 5096) falsely elevate d bilirubin results. Total and direct bilirubin must not be measured from samples co ntaining indocyanine gre en. False elevation of total biliru bin can be seen in patients with I gG concentrations above 28 g/L. [Automated message] The system [employer] generated this result transmit nikki reference range: <=1.2. T he reference range was not used to interpret this result as luis l/abnormal. Bili Direct (test code = <0.2 See_Comment Ind ocyanine Green (ICG) may cause 5094) falsely elevate d bilirubin results. Total and direct bilirubin must not be measured from samples co ntaining indocyanine gre en. [Automated message] The sy stem which generated this result transmitted reference range : <=0.3 mg/dL. The reference range was not used to interpret this result as normal/abnormal . Bili Indirect (test code = See Note 0-0.9 U nable to calculate Indirect 5095) Bilirubin resul t due to some parameters are outside reportable range MD KnowlesGlomerular Filtration [id number] 13:56:08 Test Item Value Reference Range Interpretation Comments eGFR-AA (test code 100 See_Comment Normal eG FR: >= 60 = 8062) mL/min/1.73 m2N ote: The eGFR is calculated u sing the CKD-EPI equatio n. The eGFR declines with a ge. eGFR <60 mL/min/1.73 m2 is considered as "decreased". This equation should only be used for patients 18 and older. According to e [employer] on's Kidney Disease Outcome Quality Initiative (KDO QI) classification and 2012 Kidney Disease Improving Global Outcomes (KDIGO) Clinical Practi ce Guideline, the stage of CK D should be categorized bas ed on estimated GFR. Stage Description GFR mL/min/1.73 m21 Normal or high GFR >=902 Mildly decrease d GFR 60-893a M ildly to moderately decr eased GFR 45-593b Moderat pro to severely decrea sed GFR 30-444 Severely decreased GFR 15-295 Kid gualberto failure <15 [Automa nikki message] The system [employer] generated this result tra nsmitted reference range : >=60 mL/min/1.73 sq. m. The reference range was not used to interpret th is result as normal/abnormal . eGFR-DEBORAH (test code 87 See_Comment Normal e GFR: >= 60 = 8063) mL/min/1.73 m2N ote: The eGFR is calculated u sing the CKD-EPI equatio n. The eGFR declines with a ge. eGFR <60 mL/min/1.73 m2 is considered as "decreased". This equation should only be used for patients 18 and older. According to th e National [employer] on's Kidney Disease Outcome Quality Initiative (KDO QI) classification and 2012 Kidney Disease Improving Global Outcomes (KDIGO) Clinical Practi ce Guideline, the stage of CK D should be categorized bas ed on estimated GFR. Stage Description GFR mL/min/1.73 m21 Normal or high GFR >=902 Mildly decrease d GFR 60-893a M ildly to moderately decr eased GFR 45-593b Moderat pro to severely decrea sed GFR 30-444 Severely decreased GFR 15-295 Kid gualberto failure <15 [Automa nikki message] The system [employer] generated this result tra nsmitted reference range : >=60 mL/min/1.73 sq. m. The reference range was not used to interpret th is result as normal/abnormal . MD KnowlesMagnesium [id number] 13:56:06 Test Item Value Reference Range Interpretation Comments Magnesium (test code = 6359) 1.9 mg/dL 1.6-2.6 MD [id number] 13:56:05 Test Item Value Reference Range Interpretation Comments LDH (test code = 6111) 217 U/L 135-214 H Resul ts greater than 1651 U/L may no t be reliable due to matrix effect w ith extended diluti on as it exceeds the thermodynamic physicist s recommended l imit. Caution should be exercised when interpreting stout ch values and done in conjunction wit h clinical contex t. Lab Interpretation (test Abnormal code = 55969-9) MD KnowlesAlkaline [id number] 13:56:04 Test Item Value Reference Range Interpretation Comments Alk Phos (test code = 4768) 109 U/L 35-104 H Lab Interpretation (test code = Abnormal 87986-7) MD KnowlesAlbumin [id number] 13:56:03 Test Item Value Reference Range Interpretation Comments Albumin Lvl (test code 4.1 See_Comment [Aut omated message] The = 5382) system which ge nerated this result tra nsmitted reference range : 3.5 - 5.2 gm/dL. The refe rence range was not used to interpret this result as normal/abnormal . MD KnowlesAspartate [id number] 13:56:02 Test Item Value Reference Range Interpretation Comments AST (test code = 14 U/L See_Comment [Automated message] The 4731) system which ge nerated this result transmit nikki reference range : <=32. The reference range was not used to interpr et this result as luis l/abnormal. MD KnowlesElectrolyte [id number] 13:56:01 Test Item Value Reference Range Interpretation Comments Sodium Lvl (test code = 139 See_Comment [Au tomated message] 0676) The system [employer] generated this result transmitted ref erence range: 136 - 14 5 mEq/L. The refe rence range was not u sed to interpret this result as normal/abnor mal. Potassium Lvl (test code 5.4 See_Comment H [A utomated message] = 9631) The system [employer] generated this result transmitted ref erence range: 3.5 - 5. 1 mEq/L. The refe rence range was not u sed to interpret this result as normal/abnor mal. Chloride (test code = 101 See_Comment [Auto mated message] 2747) The system [employer] generated this result transmitted ref erence range: 98 - 107 mEq/L. The refe rence range was not u sed to interpret this result as normal/abnor mal. CO2 (test code = 5227) 29 See_Comment [Aut omated message] The system [employer] generated this result transmitted ref erence range: 22 - 29 mEq/L. The reference r bhanu was not used to interpret this result as normal/abnor mal. Anion Gap (test code = 9 See_Comment [Aut omated message] 9034) The system [employer] generated this result transmitted ref erence range: 4 - 14 m Eq/L. The reference r bhanu was not used to interpret this result as normal/abnor mal. Lab Interpretation (test Abnormal code = 80224-3) MD Knowles.Serum [id number] 13:56:00 Test Item Value Reference Range Interpretation Comments Creatinine (test code = 5399) 0.72 mg/dL 0.51-0.95 MD KnowlesTotal [id number] 13:55:58 Test Item Value Reference Range Interpretation Comments Total Protein (test code = 7649) 7.6 g/dL 6.4-8.3 MD KnowlesCalcium [id number] 13:55:57 Test Item Value Reference Range Interpretation Comments Calcium Lvl (test code = 5258) 9.9 mg/dL 8.4-10.2 MD [id number] 13:55:56 Test Item Value Reference Range Interpretation Comments ALT (test code = 16 U/L See_Comment [Automated message] The 6936) system which ge nerated this result transmit nikki reference range : <=33. The reference range was not used to interpr et this result as luis l/abnormal. MD KnowlesOywfnewgNWS8902-39-13 13:55:55 Test Item Value Reference Range Interpretation Comments BUN (test code = 5055) 12 mg/dL 6-23 MD KnowlesGlucose [id number] 13:55:54 Test Item Value Reference Range Interpretation Comments Glucose Level (test code 330 mg/dL 70-99 H Eff ective 12/11/15, = 5699) the glucose reference inter vals have been updat ed based on [place] Diabetes Associ ation guidelines (Standards of Medical Care in Diabetes 2016. Diabetes Care 2 016; 39: S13-S22).Fa sting blood glucose:Normal: 70 99 mg/dLImpaire d fasting glucose (increased risk for diabetes or pre-diabetes): 100 125 mg/dLDiabet es mellitus: >/=1 26 mg/dL Random bl ood glucose:Normal: 70 199 mg/dLNote: Random glucose >100 mg/dL is associ ated with increased risk for diabetes Lab Interpretation (test Abnormal code = 63420-7) MD [id number] 13:55:53 Test Item Value Reference Range Interpretation Comments TSH (test code = 1.92 See_Comment [Automated message] The 9897) system which ge nerated this result transmit nikki reference range : 0.27 - 4.20 mcunit/mL. The reference range was not used to interpr et this result as luis l/abnormal. MD Diaz [id number] 13:55:51 Test Item Value Reference Range Interpretation Comments T4 Free (test code = 7502) 1.20 ng/dL 0.93-1.7 MD Knowl[id number] 13:15:51 Test Item Value Reference Range Interpretation Comments Neutrophil % (test code = 69.4 % 42-66 H 6491) Lymphocyte % (test code = 22.4 % 24-44 L 6194) Monocyte % (test code = 4.4 % 2-7 6422) Eosinophil % (test code = 2.7 % 1-4 5520) Basophil % (test code = 0.7 % 0-1 5068) IGRE % (test code = 5958) 0.4 % 0-0.4 IG RE % count includes Metamyelocytes, Myelocytes, and Promyelocytes. Neutrophil Abs (test code 7.43 K/uL 1.7-7.3 H = 6492) Lymphocyte Abs (test code 2.40 K/uL 1-4.8 = 6195) Monocyte Abs (test code = 0.47 K/uL 0.08-0.7 6423) Eosinophil Abs (test code 0.29 K/uL 0.04-0.4 = 5521) Basophil Abs (test code = 0.07 K/uL 0-0.1 5069) IG Abs (test code = 5954) 0.04 K/uL 0-0.04 Lab Interpretation (test Abnormal code = 66058-3) MD Knowles.[id number] 13:15:49 Test Item Value Reference Range Interpretation Comments WBC (test code = 8034) 10.7 K/uL 4-11 RBC (test code = 6932) 4.36 See_Comment [Aut omated message] The system [employer] generated this result transmitted ref erence range: 4.00 - 5 .50 M/uL. The refer ence range was not u sed to interpret this result as normal/abnor mal. Hgb (test code = 5898) 13.4 See_Comment [Aut omated message] The system [employer] generated this result transmitted ref erence range: 12.0 - 1 6.0 gm/dL. The refe rence range was not u sed to interpret this result as normal/abnor mal. Hct (test code = 5860) 39.9 % 37-47 MCV (test code = 6222) 92 fL 82-98 MCH (test code = 6220) 30.7 pg 27-31 MCHC (test code = 6221) 33.6 See_Comment [Au tomated message] The system [employer] generated this result transmitted ref erence range: 31.0 - 3 6.0 gm/dL. The refe rence range was not u sed to interpret this result as normal/abnor mal. RDW-SD (test code = 41.5 fL 35.1-46.3 6972) RDW-CV (test code = 13.4 % 12-15.5 6971) Platelet count (test 208 K/uL 140-440 code = 6832) MPV (test code = 6282) 10.7 fL 4-10.4 H INRBC (test code = 0.0 % See_Comment The INRBC (instrument 5974) NRBC) value ref lects the enumeration of nucleated red b lood cells contained in a 200uL sampleof whole blood analyzed by the instrument. Thi s value maydiffer from the NRBC value reported in a m anual differential,wh ich is based on a 100 cell differential. [Automated mess age] The system [employer] generated this result transmitted ref erence range: <=0.0. T he reference range was not used to int erpret this result as normal/abnormal . Lab Interpretation Abnormal (test code = 80059-7) MD Knowles
[2020-09-16] MEDS ORDERED: HYDROMORPHONE HCL 1 MG/ML INJ IV PRN (16:30)
[2020-09-16] MEDS ORDERED: PNEUMOCOCCAL VACCINE 0.5 ML IMVAC ONE (17:00)
[2020-09-16] MEDS ORDERED: POLYETHYL GLY 3350 17 GM/DOSE PO PRN (17:00)
[2020-09-16] MEDS ORDERED: LOPERAMIDE HCL 2 MG CAPSULE PO PRN (17:00)
[2020-09-16] MEDS ORDERED: DIPHENHYDRAMINE 25 MG TAB/CAP PO PRN (17:00)
[2020-09-16] MEDS ORDERED: ACETAMINOPHEN 325 MG TABLET PO PRN (17:00)
[2020-09-16] MEDS ORDERED: ONDANSETRON 4 MG (ODT) TAB PO PRN (17:00)
[2020-09-16] MEDS ORDERED: ONDANSETRON 4 MG/2 ML VIAL IV PRN (17:00)
[2020-09-16] MEDS: ENOXAPARIN 40 MG/0.4 ML SQ SCH (17:00)
[2020-09-16] MEDS ORDERED: NACHLORIDE 0.45% 1,000 ML IV SCH (17:00)
[2020-09-16] MEDS ORDERED: INFLUENZA VACCINE (for 3y+) 0.5 ML DOSE IMVAC ONE (17:00)
[2020-09-16 19:04] LABS: Absolute Lymphocytes (CBC) 3.2 K/uL (0.7-4.9); Basophils % 0.8 % (0-1.3); Lymphocytes % 35.4 % (15.3-44.8); MPV 8.8 fL (7.6-11.3); RBC Red Blood Cell Count 4.69 M/uL (3.86-4.86)
[2020-09-16 19:17] LABS: Protime INR 1.04
--- NOTE | 2020-09-16 19:22 | RAD REPORT ---
EXAM DESCRIPTION: RAD - Chest Pa And Lat (2 Views) - 09/16/2020 5:51 pm CLINICAL HISTORY: r/o pneumonia COMPARISON: Portable August 2019 TECHNIQUE: Frontal and lateral views of the chest were obtained. FINDINGS: The lungs are clear of a peripheral mass or consolidation. No focal pneumonia finding iden tifiable. Interstitial pattern is prominent but not clearly different from comparison. This is believ ed be baseline though a minimal interstitial edema or infiltrate could potentially be masked. Heart size is normal and central vasculature is within normal limits. No pleural effusion or pneumot horax seen. No acute bony finding noted. No aortic abnormality. IMPRESSION: No focal pneumonia or acute cardiopulmonary finding. Prominent interstitial pattern is not significantly different from comparison. Baseline prominence co uld potentially mask a mild edema or infiltrate.
[2020-09-16] MEDS: CEFOXITIN/SWI 1gm 1 GM/10 ML SYR IVP SCH (19:30)
[2020-09-16] MEDS ORDERED: NACHLORIDE 0.45% 1,000 ML IV ONE (19:53)
[2020-09-16] MEDS ORDERED: CEFOXITIN/SWI 1gm 1 GM/10 ML SYR ONE (19:53)
[2020-09-16] MEDS ORDERED: ENOXAPARIN 40 MG/0.4 ML SQ ONE (19:53)
[2020-09-16 19:54] LABS: ALT/SGPT 26 U/L (12-78); AST/SGOT 21 U/L (15-37); Albumin 3.3 g/dL (3.4-5.0); Alkaline Phosphatase 113 U/L (45-117); Amylase 20 U/L (25-115); BUN Blood Urea Nitrogen 14 mg/dL (7-18); Bicarbonate 30 mmol/L (21-32); Bilirubin Direct 0.1 mg/dL (0-0.2); Bilirubin Total 0.3 mg/dL (0.2-1.0); Glucose Level 135 mg/dL (74-106); Lipase 102 U/L (73-393); Magnesium 2.1 mg/dL (1.8-2.4); Phosphorus 3.6 mg/dL (2.5-4.9); Potassium 3.6 mmol/L (3.5-5.1); Protein, Total 8.1 g/dL (6.4-8.2); Sodium Level 144 mmol/L (136-145)
--- NOTE | 2020-09-16 20:13 | RAD REPORT ---
EXAM DESCRIPTION: CT - Abdomen Pelvis Wo Contrast - 09/16/2020 7:41 pm CLINICAL HISTORY: abd pain Prior bowel resection, cholecystectomy and hysterectomy COMPARISON: CT study July 2016 TECHNIQUE: Axial [address] imaging of the abdomen and pelvis was performed without IV contrast. No IV contrast was given because of allergy, abnormal renal function, patient refusal or physician re quest. No oral contrast given. All CT scans are performed using dose optimization technique as appropriate and may include automated exposure control or mA/KV adjustment according to patient size. FINDINGS: No suspicious findings in the lung bases. Diffuse fatty infiltration of the liver is again noted. No focal liver lesions seen. Cholecystectomy clips are present with no biliary tree dilatation. No pancreas or spleen abnormality seen. No hydronephrosis or suspicious renal mass. Patient has bilateral extrarenal pelves similar to 2017. In the lateral mid left kidney there is a 2 centimeter rounded fluid attenuation mass that has develo ped. This is almost certainly an incidental simple cyst. No significant adrenal finding. Isodense tom al masses and pyelonephritis cannot be excluded in the absence of IV contrast. The urinary bladder is without significant finding. No stomach or small bowel abnormality seen. Partial right hemicolectomy noted. No abnormality at the anastomotic site. Moderate stool volume seen in the colon. No free air, free fluid or inflammatory st randing. No hernia, mass or bulky lymphadenopathy. No suspicious bony findings. IMPRESSION: Non-contrast enhanced CT abdomen and pelvis imaging show no acute or emergent finding. Isodense masses and pyelonephritis are not excluded stone protocol imaging. Diffuse fatty infiltration of the liver. Full assessment is limited is the absence of IV contrast.
[2020-09-16 20:17] VITALS: BMI 34.2
[2020-09-16 22:22] LABS: MPV 8.7 fL (7.6-11.3)
[2020-09-16 22:29] LABS: Platelet Estimate ND
[2020-09-17] MEDS ORDERED: D50W 25 GM/50 ML SYRINGE IV PRN (00:58)
[2020-09-17] MEDS ORDERED: GLUCAGON 1 MG/VIAL IM PRN (00:58)
[2020-09-17] MEDS: CEFOXITIN/SWI 1gm 1 GM/10 ML SYR IVP SCH ×2 (01:00→10:32)
[2020-09-17] MEDS ORDERED: CEFOXITIN SODIUM 1 GM/VIAL ONE (01:20)
[2020-09-17 01:42] LABS: Urine Appearance CLEAR (Clear); Urine Bilirubin NEGATIVE (Negataive); Urine Blood NEGATIVE (Negative); Urine Color YELLOW (Yellow); Urine Glucose NEGATIVE (Negative); Urine Protein NEGATIVE (Negative); Urine Urobilinogen 0.2 mg/dL (0.2-1.0)
[2020-09-17 01:50] LABS: Urine Microscopic Reflex NO UMIC
[2020-09-17 05:32] LABS: Absolute Lymphocytes (CBC) 2.6 K/uL (0.7-4.9); Basophils % 0.9 % (0-1.3); Hematocrit 37.7 % (36.0-45.0); Lymphocytes % 31.8 % (15.3-44.8); MPV 8.9 fL (7.6-11.3); RBC Red Blood Cell Count 4.32 M/uL (3.86-4.86)
[2020-09-17 05:52] LABS: BUN Blood Urea Nitrogen 10 mg/dL (7-18); Bicarbonate 29 mmol/L (21-32); Glucose Level 107 mg/dL (74-106); Sodium Level 141 mmol/L (136-145)
[2020-09-17 05:53] LABS: Magnesium 2.2 mg/dL (1.8-2.4); Potassium 3.6 mmol/L (3.5-5.1)
--- NOTE | 2020-09-17 07:14 | ER ---
Nurse's Notes [facility] Name: Aliza Claudio Age: 69 yrs Sex: Female : 1950 Arrival Date: 09/16/2020 Time: 13:35 Bed External Waiting Private MD: Lj Aguilera V Diagnosis: Abdominal and pelvic pain Presentation: 09/16 14:27 Chief complaint: Patient states: sent over for a direct admission by Dr. Aguilera for em abdominal pain, denies fever. Coronavirus screen: Client denies travel out of the [place] in the last 14 days. Ebola Screen: Patient negative for fever greater than or equal to 101.5 degrees Fahrenheit, and additional compatible Ebola Virus Disease symptoms Patient denies exposure to infectious person. Patient denies travel to an Ebola-affected area in the 21 days before illness onset. No symptoms or risks identified at this time. Initial Sepsis Screen: Does the patient meet any 2 criteria? No. Patient's initial sepsis screen is negative. Does the patient have a suspected source of infection? No. Patient's initial sepsis screen is negative. Risk Assessment: Do you want to hurt yourself or someone else? Patient reports no desire to harm self or others. Onset of symptoms was September 16, 2020. 14:27 Method Of Arrival: Ambulatory em 14:27 Acuity: AZEEM 3 em Historical: - Allergies: 14:30 Aspirin; em 14:30 Iodine; em - PMHx: 14:30 Diabetes - IDDM; Hypertension; melanoma; em - PSHx: 14:30 Bowel resection; Cholecystectomy; ; Hysterectomy; em - Immunization history:: Adult Immunizations up to date. - Social history:: Smoking status: Patient denies any tobacco usage or history of. Vital Signs: 14:27 BP 150 / 67; Pulse 69; Resp 18; Temp 99.0; Pulse Ox 100% on R/A; Weight 93.44 kg; em Height 5 ft. 4 in. (162.56 cm); Pain 7/10; 14:27 Body Mass Index 35.36 (93.44 kg, 162.56 cm) em ED Course: 13:35 Patient arrived in ED. mr 13:36 Lj Aguilera MD is Private Physician. mr 14:28 Triage completed. em 14:30 Arm band placed on. em 15:01 Pruitt, Michelle, RN is Primary Nurse. tw2 19:16 Primary Nurse role handed off by Michelle Pruitt, RN mw2 09/17 07:13 Lj Aguilera MD is Hospitalizing Provider. tw2 Administered Medications: No medications were administered Outcome: 07:14 Decision to Hospitalize by Provider. tw2 07:14 Patient left the ED. tw2 Signatures: Sandra To Edgar RN RN em Michelle Pruitt RN RN tw2 Tex Torres mw2
[2020-09-17] MEDS ORDERED: INSULIN -REGULAR HUMAN 50 UNIT/0.5 ML ML SQ SCH (07:30)
[2020-09-17 08:42] VITALS: BP 178/75; TEMP 97.4
[2020-09-17] MEDS ORDERED: HOME MED 1 EA UNK (Insulin Degludec [Tresiba Flextouch U-200] 200 UNIT/ML Insuln.Pen) SQ SCH (09:00)
[2020-09-17] MEDS ORDERED: GABAPENTIN 300 MG CAP PO SCH (09:00)
[2020-09-17] MEDS ORDERED: POTASSIUM 25 MEQ EFFERV TAB PO ONE (09:00)
[2020-09-17] MEDS ORDERED: VALSARTAN 80 MG TAB PO SCH (09:00)
[2020-09-17] MEDS ORDERED: ROSUVASTATIN 10 MG TAB PO SCH (09:00)
[2020-09-17] MEDS: ENOXAPARIN 40 MG/0.4 ML SQ SCH (09:00)
[2020-09-17] MEDS ORDERED: carvediloL 25 MG TAB PO SCH (09:00)
[2020-09-17 09:10] VITALS: O2SAT 94
--- NOTE | 2020-09-17 22:00 | P.DS ---
Admission Date: 09/16/20 Discharge Date: 09/17/20 Disposition: ROUTINE DISCHARGE Hospital Course: DOMENICA CONTINUES TO HAVE RUQ PAIN. HER CT SCAN IS NEGATIVE. SHE WILL GO BACK TO HER [facility] IN [facility] FOR FURTHER CARE. Vital Signs/Physical Exam: Temp Pulse Resp BP Pulse Ox 97.4 F 65 16 178/75 H 95 09/17/20 08:00 09/17/20 08:00 09/17/20 08:00 09/17/20 08:00 09/17/20 08:00 Laboratory Data at Discharge: WBC 8.10 K/uL (4.3-10.9) 09/17/20 05:08 Hgb 12.4 g/dL (12.0-15.0) 09/17/20 05:08 Hct 37.7 % (36.0-45.0) 09/17/20 05:08 Plt Count 210 K/uL (152-406) 09/17/20 05:08 PT 12.0 SECONDS (9.5-12.5) 09/16/20 18:51 INR 1.04 09/16/20 18:51 APTT 32.9 SECONDS (24.3-36.9) 09/16/20 18:51 Sodium 141 mmol/L (136-145) 09/17/20 05:08 Potassium 3.6 mmol/L (3.5-5.1) 09/17/20 05:08 BUN 10 mg/dL (7-18) 09/17/20 05:08 Creatinine 0.49 mg/dL (0.55-1.3) L 09/17/20 05:08 Glucose 107 mg/dL (74-106) H 09/17/20 05:08 Phosphorus 3.6 mg/dL (2.5-4.9) 09/16/20 18:51 Magnesium 2.2 mg/dL (1.8-2.4) 09/17/20 05:08 Total Bilirubin 0.3 mg/dL (0.2-1.0) 09/16/20 18:51 AST 21 U/L (15-37) 09/16/20 18:51 ALT 26 U/L (12-78) 09/16/20 18:51 Alkaline Phosphatase 113 U/L (45-117) 09/16/20 18:51 Amylase 20 U/L (25-115) L 09/16/20 18:51 Lipase 102 U/L (73-393) 09/16/20 18:51 Home Medications: Carvedilol [Coreg] 6.25 mg PO BID 08/27/19 Gabapentin 600 mg PO TID 08/27/19 Insulin Aspart [Novolog Flexpen] 50 unit SQ TID 08/27/19 Insulin Degludec [Tresiba Flextouch U-200] 150 unit SQ DAILY 08/27/19 Olmesartan Medoxomil [Benicar] 20 mg PO DAILY 09/16/20 Rosuvastatin [Crestor] 10 mg PO DAILY 09/16/20 Physician Discharge Instructions: PROBLEM: Abdominal pain GOAL: Clear understanding of disease process INSTRUCTIONS: Ok to discharge home. Follow up with Dr. Aguilera in 1-2 weeks. Continue home medications. Contact physician or return to ER for any complications or concerns. Call [phone] for any questions regarding hospital stay. Diet: Heart Healthy Activity: As tolerated IMMUNIZATION Influenza Vaccine Indicated: Influenza Vaccine Given: Date Given: Pneumonia Vaccine Indicated: Yes Pneumonia Vaccine Given: Date Given: Followup: Lj Aguilera MD [Primary Care Provider] - 1 Week (Follow up in office in 1 week. Call to schedule an appointment.)
[2020-09-20 15:03] LABS: Vitamin D 1,25-Dihydroxy Total 53 pg/mL (18-72); Vitamin D,1,25-OH2, D2 <8 pg/mL
== END 2020-09-17 10:45 | disposition home or self-care (01) ==
LOC: ER 13:30 → ERHOLD 15:28 → 2ND 21:04
PROVIDERS: ADMIT Internal Medicine; ATTEND Internal Medicine
DX: R10.11 Right upper quadrant pain (principal); Z20.822 Contact with and (suspected) exposure to COVID-19; I10 Essential (primary) hypertension; Z85.820 Personal history of malignant melanoma of skin; E11.42 Type 2 diabetes mellitus with diabetic polyneuropathy; Z79.4 Long term (current) use of insulin; E78.5 Hyperlipidemia, unspecified; M19.90 Unspecified osteoarthritis, unspecified site; K74.60 Unspecified cirrhosis of liver; K76.0 Fatty (change of) liver, not elsewhere classified; E66.9 Obesity, unspecified; Z68.36 Body mass index [BMI] 36.0-36.9, adult
CPT/HCPCS: 85025 ×2; 80048 ×2; 36415 ×2; 82150; 83735 ×2; 84100; 85049; 85610; 82947 ×3; 80076; 85730; 82652; 84443; 81003; 83036; 82570; 82607; 83690; 82043; 74176; 71046; U0003; J1650; J0694; G0379; G0378 ×2; 99281